=== PATIENT | male | born 1980 | race Caucasian/White ===

== ENCOUNTER 2022-10-21 11:04 | Emergency (ER) | payer OTHER ==
[~2022-10-21] VITALS: Ht 190.5 cm; Wt 118.0 kg
[2022-10-21] MEDS ORDERED: PROPARACAINE 0.5% OPHTH SOL 15ML XX ONE (11:15)
[2022-10-21] MEDS ORDERED: FLUORESCEIN OPHTH 1MG STRIP XX ONE (11:15)
[2022-10-21] MEDS ORDERED: BACIOIN23 OP (12:04)
[2022-10-21] MEDS ORDERED: DOXY-443 PO (12:04)
[2022-10-21] MEDS ORDERED: BOOSTRIX/ADACEL VACCINE (DIPHTH/PERTUSS/ACELL/TETANUS) 0.5ML SYR IM.IMMUN ONE (12:05)
[2022-10-21 12:14] VITALS: BP 125/73
== END 2022-10-21 12:24 | disposition home or self-care (01) ==
LOC: M ED 11:04
DX: S05.01XA Injury of conjunctiva and corneal abrasion without foreign body, right eye, initial encounter (principal); X58.XXXA Exposure to other specified factors, initial encounter; Y92.89 Other specified places as the place of occurrence of the external cause; Y93.89 Activity, other specified; Y99.8 Other external cause status; H05.011 Cellulitis of right orbit